=== PATIENT | female | born 1985 | race African-American/Black ===

== ENCOUNTER 2023-09-18 08:53 | Emergency (ER) | payer MEDICAID ==
[~2023-09-18] VITALS: Ht 157.5 cm; Wt 78.0 kg
[2023-09-18 09:00] VITALS: O2SAT 100
[2023-09-18] MEDS ORDERED: AMOX1TAB16 MT (09:27)
[2023-09-18] MEDS ORDERED: TRAM50TA3 MT (09:27)
[2023-09-18 09:30] VITALS: BP 111/79; PULSE 110; RESP 20; TEMP 98.2
[2023-09-18] MEDS: KETOROLAC 30MG/ML VIAL IM ONE (09:38)
== END 2023-09-18 09:48 | disposition home or self-care (01) ==
LOC: ER 08:53
DX: K04.7 Periapical abscess without sinus (principal); E11.9 Type 2 diabetes mellitus without complications
CPT/HCPCS: 81025; 82962; 96372; 99283; J1885; Z7610